=== PATIENT | female | born 1940 | race Caucasian/White ===

== ENCOUNTER → 2016-12-24 | Outpatient (CLI) | payer MEDICARE, BC ==
[~2016-12-24] MED LIST: ACETAMINOPHEN PO; ALPRAZOLAM0.25 MG PO; ANORO ELLIPTA1 EACH INH; ASPIRIN EC81 M1 PO; COREG PO; COUMADIN2.5 MG PO; FOLIC ACID PO; FOLIC ACID800 MCG PO; HCTZ PO; HYDROCHLOROTHIA25 MG PO; HYDROCODON-ACE1 EAC7 PO; LOTREL 10-20 MG1 CAP PO; LOTREL 10/20 CA1 CAP PO; METHOTREXATE2.5 MG PO; NAPROSYN500 MG PO; REMICADE IV; TAPAZOLE5 MG PO; VITAL-D RX TABL1 TAB PO; VITAMIN D2000 UNI1 PO; ZOCOR PO; [UNRECOGNIZED DRUG - OTHER] PO
--- NOTE | ~2016-12-24 | CT57 ---
[facility] A Service of [facility] & [facility] RADIOLOGY TEXT RESULTS PATIENT: KURTIS ESPINOSA LOCATION: [facility] : 38 UNIT #: [id number] AGE: [address]: Dinora Tang APRN SEX: F ORDER DR: [id number] [facility] [address] [place], [place] [address] [id number] O MR#: [id number] Acc #: [id number] NAME: KURTIS ESPINOSA. : 1940 SEX: F STUDY DATE/TIME: 12/24/2016 12:54 UNIT: [facility] ROOM: STUDY DESCRIPTION: CT Chest Wo Cont Attending Physician: Dinora Tang A.P.R.N. Referring Physician: Dinora Tang A.P.R.N. Ordering Physician: Dinora Tang A.P.R.N. Primary Care Physician: Pepe Aden Jr., M.D. MEDICAL IMAGING REPORT This report is preliminary unless electronic signature is present EXAM CT chest without contrast DATE 12/24/2016 HISTORY 76-year-old female abnormal chest x-ray at office, increasing shortness of breath over the past 6 months. COMPARISON CTA chest 07/26/2016; CT chest without contrast 06/19/2016. The technologist has placed a special note in the computer states that she has contacted the referring physician's office, and there is no chest x-ray for comparison. They have requested that today's scan be compared with a CT chest from 06/19/2016. PROCEDURE 5 mL axial images through the chest without contrast. Sagittal and coronal reformatted images were obtained. This CT exam was performed with one or more of the following radiation dose reduction techniques: automatic exposure control, adjustment of mA and/or kV according to patient size, and iterative reconstruction. FINDINGS Crescentic parenchymal density at the medial margin of the right lower lobe appears less dense than on the 06/19/2016 and 07/26/2016, examinations, may represent improved pneumonitis superimposed upon an area of chronic fibrosis. Parenchymal fibrotic changes are thought most likely to be in the same vicinity secondary to compressive thoracic osteophyte formation. Additionally, the airspace disease documented within the right middle lobe on the 06/19/2016, examination appears largely resolved with only mild interstitial fibrotic changes remaining in that distribution. 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 No acute airspace disease is seen. Moderately advanced emphysematous changes are redemonstrated. There is stable cardiac enlargement with dense coronary artery calcifications. Central pulmonary arteries remain enlarged, raising the possibility of pulmonary arterial hypertension. Stable degree of aneurysmal dilation in the mid ascending thoracic aorta, 4.3 cm, and borderline aneurysmal dilation mid descending thoracic aorta, 3.0 cm. Trace pericardial fluid. Heterogeneous enlargement of the thyroid gland, unchanged. Trace of fluid within the pericardial recesses. Benign calcified lymph node in the right hilum. Stable cardiomegaly. Included portions of the upper abdominal organs appear within normal limits. Thoracic spondylosis. No acute osseous abnormalities are identified. IMPRESSION 1. Improved crescentic opacity in the medial right lower lobe thought to represent interval resolution of airspace disease as site of peripheral fibrosis. 2. Resolution of right middle lobe airspace disease, with chronic-appearing fibrosis changes remaining at that location. 3. No acute chest findings. 4. Advanced emphysema. 5. Stable thoracic aortic aneurysmal dilation. 6. Stable dilation of the central pulmonary arteries. Correlate clinically for pulmonary arterial hypertension. 7. Stable cardiomegaly with coronary artery calcifications. Dictated by... Amanda Farias M.D. THIS IS AN ELECTRONICALLY VERIFIED REPORT Amanda Farias M.D. at 12/25/2016 8:[address] [facility]/to TD: 12/24/2016 21:40 JOB #: [id number] MEDICAL IMAGING REPORT Page 1 of 1 COPY
== END | disposition home or self-care (01) ==
LOC: CCAT 12:16
DX: R93.8 Abnormal findings on diagnostic imaging of other specified body structures (principal); J43.9 Emphysema, unspecified; J98.4 Other disorders of lung; I71.2 Thoracic aortic aneurysm, without rupture; I28.1 Aneurysm of pulmonary artery; I51.7 Cardiomegaly; I25.10 Atherosclerotic heart disease of native coronary artery without angina pectoris
CPT/HCPCS: 71250

== ENCOUNTER → 2017-03-13 | Outpatient (CLI) | payer MEDICARE, BC ==
--- NOTE | ~2017-03-13 | CT57 ---
[facility] A Service of [facility] & [facility] RADIOLOGY TEXT RESULTS PATIENT: KURTIS ESPINOSA LOCATION: [facility] : 38 UNIT #: [id number] AGE: [address]: Dinora Tang APRN SEX: F ORDER DR: [id number] [facility] [address] [place], [place] [address] [id number] O MR#: [id number] [facility] #: [id number] NAME: KURTIS ESPINOSA : 1940 SEX: F STUDY DATE/TIME: 03/13/2017 13:15 UNIT: [facility] ROOM: STUDY DESCRIPTION: CT Chest Wo Cont Attending Physician: Dinora Tang A.P.R.N. Referring Physician: Dinora Tang A.P.R.N. Ordering Physician: Dinora Tang A.P.R.N. Primary Care Physician: Pepe Aden Jr., M.D. MEDICAL IMAGING REPORT This report is preliminary unless electronic signature is present EXAM CT chest without contrast, 03/13/2017 13:15 hours HISTORY 77-year-old woman with diagnosis of COPD complaining of worsening shortness of air over the past [address] with right lower lobe nodular density as seen on 12/24/2016, 06/19/2016. COMPARISON 12/24/2016, 06/19/2016, 12/22/2015 TECHNIQUE Helical noncontrasted images were obtained from the thoracic inlet through the adrenal glands. Sagittal and coronal reconstructions were performed. Total exam DLP 564 mGy-cm. This CT exam was performed with one or more of the following radiation dose reduction techniques: automatic exposure control, adjustment of mA and/or kV according to patient size, and iterative reconstruction. FINDINGS Images through the thoracic inlet demonstrate diffusely enlarged right and left lobes of thyroid with heterogeneity and likely underlying nodules unchanged. Images through the chest demonstrate coarse atherosclerotic calcifications of the aorta, coronary arteries and the arch vessels. There is a fusiform ascending aortic aneurysm measuring up to 4.5 cm, previously 4.6 cm. The central pulmonary arteries are markedly enlarged raising concern for underlying pulmonary arterial hypertension. Main pulmonary artery is 5.3 cm, previously 5.2 cm, right pulmonary artery 3.1 cm, previously 3.2 cm. Left pulmonary artery 3.4 cm, previously 3.3 cm. There is diffuse multi-chamber cardiac enlargement. There is no pericardial or pleural STS. [facility] A Service of [facility] & [facility] RADIOLOGY TEXT RESULTS PATIENT: KURTIS ESPINOSA LOCATION: [facility] : 38 UNIT #: [id number] AGE: [address]: Dinora Tang [employer] DEPARTMENT CHAIR SEX: F ORDER DR: glory. Lung window images demonstrate diffuse centrilobular emphysema without large blebs or bullae. There is a crescentic area of linear scarring in the right lower lobe paravertebral location which is unchanged. There is subpleural nonspecific interstitial thickening in the lung bases laterally and posteriorly, right greater than left, with mild peribronchiolar wall thickening of both lower lobes likely an element of bronchitis perhaps chronic. There is no definite mucous plugging. The findings are not diagnostic of UIP. Limited views through the upper abdomen demonstrate calcified granulomatous changes in the liver and spleen. There is no focal liver lesion. There are multiple large rim calcified gallstones. There is no bile duct dilatation. The adrenal glands are normal. IMPRESSION 1. Fusiform aneurysmal dilatation of the ascending aorta measuring 4.5 cm, previously 4.6 cm. 2. Markedly enlarged main, right and left pulmonary arteries raising concern for underlying pulmonary arterial hypertension. These measurements are not appreciably changed from 12/24/2016. There is multi-chamber cardiac enlargement without pericardial fluid. 3. Benign calcified granulomatous changes. 4. There is moderate to severe underlying centrilobular emphysema without large blebs or bullae. 5. Stable curvilinear scarring in the right lower lobe medial paravertebral location. 6. Nonspecific subpleural interstitial thickening at the lung bases right greater than left unchanged. 7. There is peribronchiolar wall thickening at both lung bases suggesting bronchitis which could be chronic. No definite mucous plugging or pneumonia. 8. Multiple large gallstones in the gallbladder. Dictated by... Eli Sahu M.D. THIS IS AN ELECTRONICALLY VERIFIED REPORT Eli Sahu M.D. at 03/14/2017 12:52 PM [place] TD: 03/14/2017 10:53 JOB #: [id number] MEDICAL IMAGING REPORT Page 1 of 1 COPY
== END | disposition home or self-care (01) ==
LOC: CCAT 12:24
DX: R93.8 Abnormal findings on diagnostic imaging of other specified body structures (principal); I71.2 Thoracic aortic aneurysm, without rupture; I28.8 Other diseases of pulmonary vessels; J43.2 Centrilobular emphysema; K80.20 Calculus of gallbladder without cholecystitis without obstruction
CPT/HCPCS: 71250